=== PATIENT | female | born 1995 | race Caucasian/White ===

== ENCOUNTER → 2021-06-20 | Outpatient (CLI) | payer OTHER | LOC: COL.RAD 12:58 | DX: Z80.8 Family history of malignant neoplasm of other organs or systems (principal) ==

== ENCOUNTER → 2022-06-02 | Outpatient (CLI) | payer OTHER | LOC: COL.RAD 07:52 | DX: N97.9 Female infertility, unspecified (principal) | CPT/HCPCS: Q9967 ==

== ENCOUNTER → 2023-02-27 | Outpatient (CLI) | payer OTHER ==
[2023-02-27 08:55] LABS: THYROID STIMULATING HORMONE 4.245 uIU/mL (0.350-4.940)
== END ==
LOC: COL.LAB 07:45
PROVIDERS: Obstetrics & Gynecology Reproductive Endocrinology
DX: Z32.00 Encounter for pregnancy test, result unknown (principal); E02 Subclinical iodine-deficiency hypothyroidism

== ENCOUNTER 2023-09-06 09:59 | Emergency (ER) | payer OTHER ==
[~2023-09-06] VITALS: Ht 177.8 cm; Wt 114.5 kg
--- NOTE | 2023-09-06 11:11 | NUR ---
PT SEEN IN ER TODAY FOR TACHYCARDIA. PT IS CONCERNED ABOUT PRE-E. PT HAS HAD NO VISUAL DISTURBANCES, UPPER RIGHT QUADRANT PAIN, OR HEADACHES THAT ARE MORE THAN MILD. PT REPORTS HER HEART RATE AT 110 SITTING AND UP TO 135 WHILE STANDING. PT ALSO STATES THAT SHE IS ON LEVOTHYROXINE FOR HYPOTHYROIDISM. PT DENIES LOF AND VB. MOVEMENT IS SLIGHTLY MORE THAN NORMAL SINCE YESTERDAY.
[2023-09-06 12:25] VITALS: TEMP 97.5
[2023-09-06] MEDS ORDERED: NS 1,000 ML IV ONE (12:45)
[2023-09-06 13:01] LABS: BASO % 0.4 % (0.0-2.0); EOS # 0.1 K/mm3 (0.0-0.7); EOS % 0.6 % (0.0-4.0); GRAN # 7.1 K/mm3 (1.4-6.5); GRAN % 70.5 % (42.2-75.2); HEMOGLOBIN 12.4 g/dl (12.5-16.0); LYMPH % 20.2 % (20.0-51.0); MEAN CELL VOLUME 86 fl (80.0-100.0); MEAN CORPUSCULAR HEMOGLOBIN 29 pg (27-31); MEAN CORPUSCULAR HGB CONC 34 g/dl (33.0-37.0); MEAN PLATELET VOLUME 9.9 fl (7.4-10.4); MONO # 0.8 K/mm3 (0.1-0.6); MONO % 7.8 % (1.7-9.3); PLATELET COUNT 309 K/mm3 (130-400); RED BLOOD COUNT 4.22 M/mm3 (4.10-5.30); REDCELL DISTRIBUTION WIDTH-CV 13.1 % (11.5-14.5)
[2023-09-06 13:02] LABS: HEMATOCRIT 36.3 % (37.0-47.0)
[2023-09-06 13:16] LABS: BILIRUBIN,TOTAL 0.3 mg/dL (0.2-1.2); CALCIUM 9.6 mg/dL (8.4-10.2); CREATININE, serum 0.65 mg/dL (0.57-1.11); POTASSIUM 3.8 mEq/L (3.5-4.5); TOTAL PROTEIN 7.1 g/dl (6.2-8.1)
[2023-09-06 13:36] LABS: THYROID STIMULATING HORMONE 2.511 uIU/mL (0.350-4.940)
[2023-09-06 14:11] LABS: URINE APPEARANCE CLEAR (CLEAR/HAZY); URINE BLOOD NEGATIVE (NEGATIVE); URINE COLOR YELLOW (YELLOW); URINE GLUCOSE NEGATIVE (NEGATIVE); URINE KETONE NEGATIVE (NEGATIVE); URINE NITRATE NEGATIVE (NEGATIVE); URINE PROTEIN(semi-quant) NEGATIVE (NEGATIVE); URINE UROBILINOGEN 0.2 E.U/dL (0.2-1.0)
[2023-09-06 14:16] LABS: COLLECTION METHOD CLEAN CATCH
[2023-09-06] MEDS ORDERED: CEPHALEXIN500 M1 PO (14:20)
[2023-09-06 14:23] VITALS: BP 127/83; PULSE 96
== END 2023-09-06 14:24 | disposition home or self-care (01) ==
LOC: COL.ER 09:59
PROVIDERS: Nurse Practitioner
DX: O23.43 Unspecified infection of urinary tract in pregnancy, third trimester (principal); O26.893 Other specified pregnancy related conditions, third trimester; R00.0 Tachycardia, unspecified; Z3A.31 31 weeks gestation of pregnancy
CPT/HCPCS: J7030

== ENCOUNTER 2023-11-03 05:19 | Inpatient (IN) | payer OTHER ==
[~2023-11-03] VITALS: Ht 177.8 cm; Wt 122.7 kg
[2023-11-03] VITALS (13 sets, daily range): BP systolic 111–136; BP diastolic 69–89; PULSE 72–105; TEMP 98.1–98.4
[~2023-11-03 05:19] MED LIST: CEPHALEXIN500 M1 PO
[2023-11-03] MEDS ORDERED: LR 1,000 ML IV SCH (18:30)
[2023-11-03 19:25] LABS: BASO % 0.4 % (0.0-2.0); EOS % 0.5 % (0.0-4.0); GRAN # 4.8 K/mm3 (1.4-6.5); GRAN % 60.2 % (42.2-75.2); HEMOGLOBIN 11.3 g/dl (12.5-16.0); LYMPH # 2.1 K/mm3 (1.2-3.4); LYMPH % 26.6 % (20.0-51.0); MEAN CELL VOLUME 84 fl (80.0-100.0); MEAN CORPUSCULAR HEMOGLOBIN 27 pg (27-31); MEAN CORPUSCULAR HGB CONC 33 g/dl (33.0-37.0); MONO % 11.9 % (1.7-9.3); PLATELET COUNT 272 K/mm3 (130-400); RED BLOOD COUNT 4.17 M/mm3 (4.10-5.30); REDCELL DISTRIBUTION WIDTH-CV 14.6 % (11.5-14.5)
[2023-11-03 19:26] LABS: HEMATOCRIT 34.8 % (37.0-47.0)
[2023-11-03] MEDS ORDERED: LR & Oxytocin 500 ML IV SCH (19:45)
[2023-11-03] MEDS ORDERED: EUTHYROX75 MCG PO (20:15)
[2023-11-03] MEDS ORDERED: TOPROL XL 25MG25 MG PO (20:17)
[2023-11-03] MEDS ORDERED: PRENATAL TABLET PO (20:23)
[2023-11-03] MEDS ORDERED: VITAMIND3 5000 PO (20:25)
[2023-11-03] MEDS ORDERED: PROBIOTIC 2 BI1 EACH (20:32)
[2023-11-03] MEDS ORDERED: ULTRA OMEGA EAC PO (20:33)
[2023-11-03] MEDS ORDERED: PROBIOTIC BLEN1 EACH PO (20:35)
[2023-11-03] MEDS ORDERED: ROPivacaine PF 0.2% 200 ML IV ONE (22:48)
[2023-11-03] MEDS ORDERED: Lidocaine PF 2% (20 MG/ML) 5 ML VIAL ONE (22:49)
[2023-11-03] MEDS ORDERED: diphenhydrAMINE 25 MG CAP PO PRN (23:30)
[2023-11-03] MEDS ORDERED: Naloxone 0.4 MG/ML VIAL IV PRN (23:30)
[2023-11-03] MEDS ORDERED: ePHEDrine 50 MG/10 ML VIAL IV PRN (23:30)
[2023-11-03] MEDS ORDERED: diphenhydrAMINE 50 MG/ML 1 ML VIAL IV PRN (23:30)
[2023-11-03] MEDS ORDERED: Ondansetron 4 MG/2 ML VIAL IV PRN (23:30)
[2023-11-04] VITALS (34 sets, daily range): BP systolic 95–142; BP diastolic 51–79; PULSE 82–109; TEMP 98.1–98.8
[2023-11-04] MEDS ORDERED: miSOPROStol 200 MCG TAB PO ONE (11:45)
[2023-11-04] MEDS ORDERED: Naloxone 0.4 MG/ML VIAL IV PRN (12:15)
[2023-11-04] MEDS ORDERED: Loratadine 10 MG TAB PO PRN (12:15)
[2023-11-04] MEDS ORDERED: Ibuprofen 600 MG TAB PO SCH (12:15)
[2023-11-04] MEDS ORDERED: oxyCODONE 5 MG TAB PO PRN (12:15)
[2023-11-04] MEDS ORDERED: Measles/Mumps/Rubella Virus Vaccine Live w Diluent 0.5 ML VIAL SQ SCH (12:15)
[2023-11-04] MEDS ORDERED: Witch Hazel 50% Pads Bulk TUB TP PRN (12:15)
[2023-11-04] MEDS ORDERED: Phenylephrine/Mineral Oil/Petrolatum 57 GM TUBE RC PRN (12:15)
[2023-11-04] MEDS ORDERED: Magnes Hydrox (MOM) 80 MG/ML 30 ML CUP PO PRN (12:15)
[2023-11-04] MEDS ORDERED: Mag/Al Hydrox/Simeth Susp 30 ML CUP PO PRN (12:15)
[2023-11-04] MEDS ORDERED: Acetaminophen 500 MG TAB PO SCH (12:15)
[2023-11-04] MEDS ORDERED: Sennosides/Docusate 8.6-50 MG TAB PO SCH (17:00)
[2023-11-04] MEDS ORDERED: traZODone 50 MG TAB PO PRN (21:00)
[2023-11-05] VITALS: BP 118/62; PULSE 76; TEMP 98
[2023-11-05 03:30] VITALS: BP 111/68; PULSE 96; TEMP 97.9
[2023-11-05 06:45] VITALS: BP 109/74; PULSE 89; TEMP 98.6
[2023-11-05] MEDS ORDERED: IBU600 MG PO (08:34)
[2023-11-05] MEDS ORDERED: ROXICODONE 55 MG/TAB PO (08:35)
[2023-11-05 20:24] VITALS: BP 135/78; PULSE 88; TEMP 98.3
== END 2023-11-05 21:15 | disposition home or self-care (01) | DRG 807 ==
LOC: OB 05:19 → LDR 18:02 → OB 19:54
PROVIDERS: ADMIT Obstetrics & Gynecology
PROC: 10E0XZZ Delivery of Products of Conception, External Approach (ICD-10-PCS; principal; 2023-11-04)
PROC: 0KQM0ZZ Repair Perineum Muscle, Open Approach (ICD-10-PCS; 2023-11-04)
PROC: 0UQMXZZ Repair Vulva, External Approach (ICD-10-PCS; 2023-11-04)
PROC: 10907ZC Drainage of Amniotic Fluid, Therapeutic from Products of Conception, Via Natural or Artificial Opening (ICD-10-PCS; 2023-11-04)
PROC: 3E033VJ Introduction of Other Hormone into Peripheral Vein, Percutaneous Approach (ICD-10-PCS; 2023-11-04)
DX: O99.284 Endocrine, nutritional and metabolic diseases complicating childbirth (principal); Z37.0 Single live birth; O99.02 Anemia complicating childbirth; D64.9 Anemia, unspecified; Z3A.39 39 weeks gestation of pregnancy; E03.9 Hypothyroidism, unspecified; M54.50 Low back pain, unspecified; O90.89 Other complications of the puerperium, not elsewhere classified; O70.1 Second degree perineal laceration during delivery; O76 Abnormality in fetal heart rate and rhythm complicating labor and delivery; O16.4 Unspecified maternal hypertension, complicating childbirth; Z23 Encounter for immunization
CPT/HCPCS: J2405; J2590; J2795; J7120